=== PATIENT | male | born 1970 | race Caucasian/White ===

== ENCOUNTER 2019-04-15 05:43 | Day surgery (SDC) | payer OTHER ==
[~2019-04-15] VITALS: Ht 195.6 cm; Wt 81.6 kg
[2019-04-15] MEDS ORDERED: LIDOCAINE 4% SOLUTION 50 ML BTL ONE (06:33)
[2019-04-15] MEDS ORDERED: omeprazole (07:09)
[2019-04-15] MEDS ORDERED: vitamins (07:09)
[2019-04-15 07:15] VITALS: BP 113/65; PULSE 58; RESP 16; Ht 195.6 cm; Wt 81.6 kg
[2019-04-15] MEDS ORDERED: MIDAZOLAM 1 MG/ML 2 ML INJ ONE ×2 (08:20)
[2019-04-15] MEDS ORDERED: FENTAnyl 50 MCG/ML VIAL ONE (08:20)
== END 2019-04-15 12:51 | disposition home or self-care (01) ==
LOC: GIL 05:43
PROVIDERS: ATTEND Internal Medicine Gastroenterology
DX: Z12.11 Encounter for screening for malignant neoplasm of colon (principal); K64.9 Unspecified hemorrhoids; K20.8 Other esophagitis; K26.9 Duodenal ulcer, unspecified as acute or chronic, without hemorrhage or perforation
CPT/HCPCS: 43239; 45378; 88305; 88312; J2250; J3010; Z7610

== ENCOUNTER 2019-09-27 09:57 | Day surgery (SDC) | payer OTHER ==
[~2019-09-27] VITALS: Ht 198.1 cm; Wt 86.6 kg
[~2019-09-27 09:57] MED LIST: FLUO40CA PO; OMEP20CA17 PO; TEST30SO3 TD; omeprazole; vitamins
[2019-09-27 10:42] VITALS: Ht 198.1 cm; Wt 86.6 kg
[2019-09-27 12:00] VITALS: BP 146/69; PULSE 52; RESP 15
[2019-09-27] MEDS ORDERED: LIDOCAINE 4% SOLUTION 50 ML BTL ONE ×2 (12:06→12:07)
[2019-09-27 12:35] VITALS: BP 121/67; PULSE 60; RESP 21
[2019-09-27 12:40] VITALS: BP 127/69; PULSE 60; RESP 21
[2019-09-27] MEDS ORDERED: MIDAZOLAM 1 MG/ML 2 ML INJ ONE ×2 (12:57)
[2019-09-27] MEDS ORDERED: FENTAnyl 50 MCG/ML VIAL ONE (12:57)
== END 2019-09-27 14:30 | disposition home or self-care (01) ==
LOC: GIL 09:57
PROVIDERS: ATTEND Internal Medicine Gastroenterology
DX: K29.80 Duodenitis without bleeding (principal); K44.9 Diaphragmatic hernia without obstruction or gangrene; K20.0 Eosinophilic esophagitis
CPT/HCPCS: 43239; 88305; 88312; 88313; J2250; J3010; Z7610